=== PATIENT | male | born 1950 | race African-American/Black ===

== ENCOUNTER 2016-12-13 01:32 | Emergency (ER) | payer MEDICARE, MEDICAID ==
[~2016-12-13] VITALS: Ht 167.6 cm; Wt 63.0 kg
[~2016-12-13 01:32] MED LIST: ASPI81TA67 PO; CALTTAB10 PO; CLIN150 PO; CRES10TA PO; EPZITAB4 PO; LISI-360 PO; TENO300 PO; [UNRECOGNIZED DRUG - CODE] PO
[2016-12-13 01:34] VITALS: BP 159/77; PULSE 81; RESP 16; TEMP 97.7; O2SAT 100
[2016-12-13 02:59] VITALS: RESP 18; O2SAT 97
[2016-12-13] MEDS ORDERED: ASPI-110 PO (03:02)
[2016-12-13] MEDS ORDERED: VIRA200T PO (03:02)
[2016-12-13] MEDS ORDERED: VIRE300T2 PO (03:02)
[2016-12-13] MEDS ORDERED: ROSU10 PO (03:02)
[2016-12-13] MEDS ORDERED: EPZITAB3 PO (03:02)
[2016-12-13 04:09] LABS: AUTOMATED NEUTROPHIL # 2.9 TH/MM3 (1.8-7.7); BASOPHIL % 0.8 % (0.0-2.0); EOSINOPHIL # 0.2 TH/MM3 (0-0.4); EOSINOPHIL % 3.8 % (0.0-4.0); HEMATOCRIT 39.3 % (39.0-51.0); HEMO FLAGS DIFF FINAL; LYMPH % 22.7 % (9.0-44.0); LYMPHOCYTE # 1.2 TH/MM3 (1.0-4.8); MEAN CELL VOLUME 91.6 FL (80.0-100.0); MEAN CORPUSCULAR HEMOGLOBIN 31.3 PG (27.0-34.0); MEAN CORPUSCULAR HGB CONC 34.2 % (32.0-36.0); MONO % 17.4 % (0.0-8.0); NEUT % 55.3 % (16.0-70.0); PLATELET COUNT 205 TH/MM3 (150-450); RED BLOOD COUNT 4.29 MIL/MM3 (4.50-5.90); RED CELL DISTRIBUTION WIDTH 14.9 % (11.6-17.2); WHITE BLOOD COUNT 5.2 TH/MM3 (4.0-11.0)
[2016-12-13] MEDS ORDERED: NYST100084 TOPICAL (04:29)
[2016-12-13] MEDS ORDERED: DIFL150T PO (04:29)
[2016-12-13 04:36] LABS: BLOOD, URINE NEG (NEG); COMMENT (UR) CULT NOT INDICATED; CULTURE IF INDICATED CULT NOT INDICATED; GLUCOSE,URINE NEG (NEG); KETONE, URINE NEG (NEG); MUCUS URINE FEW /lpf (OCC); NITRITE,URINE NEG (NEG); SQUAMOUS EPITHELIAL CELL URINE <1 /hpf (0-5); URINE COLOR YELLOW (YELLW/STRAW)
[2016-12-13 04:43] LABS: ALT (GPT) 38 U/L (12-78); ANION GAP 5 MEQ/L (5-15); AST (GOT) 29 U/L (15-37); BICARBONATE 31.3 MEQ/L (21.0-32.0); BLOOD UREA NITROGEN 13 MG/DL (7-18); CHLORIDE 107 MEQ/L (98-107); GLOMERULAR FILTRATION RATE 71 ML/MIN (>89); POTASSIUM 3.8 MEQ/L (3.5-5.1); SODIUM (NA) 143 MEQ/L (136-145)
[2016-12-13 04:45] LABS: ALKALINE PHOSPHATASE 81 U/L (45-117); TOTAL BILIRUBIN ADULT 0.2 MG/DL (0.2-1.0)
--- NOTE | 2016-12-13 05:13 | PD ---
HPI Chief Complaint: Complaint Time Seen by Provider: 03:29 Travel History International Travel<30 days: No Contact w/Intl Traveler<30days: No Traveled to known affect area: No History of Present Illness HPI The patient is a 66 year old male who presents to the [facility] emergency department with a history of a burning sensation to his penis that he first noticed on Monday. He reports that he then noticed when attempting to urinate that it was more difficult to urinate and his penis was swollen. Since then, he has noticed some redness to the shaft of the penis and the glans. He reports that he does have a partner that he is sexually active with, however he denies any new partners. He reports that he is concerned about sexually transmitted infections. He denies any prior history of herpes. He reports that he has remote history as a teenager of having gonorrhea. He denies having any associated penile discharge. He denies having any scrotal pain or swelling. He denies having any abdominal pain. The patient denies any recent antibiotic use. The patient is uncircumcised. On review of systems, the patient denies any recent cough, congestion, neck pain, chest pain, shortness of breath, vomiting, diarrhea, urinary frequency, urinary urgency, or neurologic symptoms. [facility] Past Medical History Narrative Medical The patient's Patient's past medical history is significant for HIV diagnosed in 2004. The patient last had a CD4 count and viral load done 2 weeks ago. He reports that his CD4 count was good and his viral load was undetectable. The patient has a history of colon cancer, prostate cancer. Cancer: Yes (COLON AND PROSTATE) Diminished Hearing: No Immune Disorder: Yes (HIV POSITIVE) Tetanus Vaccination: Unknown Influenza Vaccination: No Past Surgical History Narrative Surgical The patient's past surgical history is significant for bilateral hip replacements. 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 Aspirin 81 (Aspirin) 81 Mg Tabdr 81 Mg PO DAILY Crestor (Rosuvastatin Calcium) 10 Mg Tab 10 Mg PO DAILY Viramune (Nevirapine) 200 Mg Tab 50 Mg PO BID Viread (Tenofovir Disoproxil Fumarate) 300 Mg Tab 300 Mg PO DAILY Review of Systems Except as stated in HPI: all other systems reviewed are Neg General / Constitutional: No: Fever Eyes: No: Visual changes HENT: No: Headaches Cardiovascular: No: Chest Pain or Discomfort Respiratory: No: Shortness of Breath Gastrointestinal: No: Abdominal Pain Genitourinary: Positive: Dysuria, No: Urgency, Frequency, Pelvic Pain, Discharge Musculoskeletal: No: Pain Skin: Positive Change in Pigmentation (redness to the penis), No Rash Neurologic: No: Weakness Psychiatric: No: Depression Endocrine: No: Polydipsia Hematologic/Lymphatic: No: Easy Bruising Physical Exam Narrative General: The patient is a well-developed well-nourished male in no acute distress. Head and Neck exam: Head is normocephalic atraumatic. Eyes: EOMI, pupils are equal round and reactive to light. Nose: Midline septum with pink mucous membranes Mouth: Dentition unremarkable. Moist mucus membranes. Posterior oropharynx is not erythematous. No tonsillar hypertrophy. Uvula midline. Airway patent. Neck: No palpable lymphadenopathy. No nuchal rigidity. No thyromegaly. Cardiovascular: Regular rate and rhythm without murmurs, gallops, or rubs. Lungs: Clear to auscultation bilaterally. No wheezes, rhonchi, or rales. Abdomen: Soft, without tenderness to palpation in all 4 quadrants of the abdomen. No guarding, rebound, or rigidity. Bowel sounds are audible. No tenderness on palpation of McBurney's point. Extremities: No clubbing, cyanosis, or edema. 2+ pulses in all 4 extremities. No calf tenderness on palpation. Back: No costovertebral angle tenderness to palpation. Neurologic Exam: Grossly nonfocal. Skin Exam: No rash noted. Intact skin that is warm and dry. Genital exam: The patient is an uncircumcised male. No abnormality noted on the outside of the foreskin, however with retraction of the foreskin the patient is noted to have erythema to the glans of the penis and one third down the shaft of the penis. There are no vesicles noted. No ulceration. No penile discharge. No scrotal swelling or pain on palpation. No palpable testicle masses or tenderness on palpation. No palpable hernia. Data Data Last Documented VS Vital Signs Date Time Temp Pulse Resp B/P Pulse Ox O2 Delivery O2 Flow Rate FiO2 12/13/16 01:34 97.7 81 16 159/77 100 Room Air Orders Urinalysis - C+S If Indicated (12/13/16 03:30) Gc And Chlamydia Pcr (12/13/16 03:30) Complete Blood Count With Diff (12/13/16 03:30) Comprehensive Metabolic Panel (12/13/16 03:30) Iv Access Insert/Monitor (12/13/16 03:30) Ecg Monitoring (12/13/16 03:30) Oximetry (12/13/16 03:30) Labs Laboratory Tests Test 12/13/16 03:55 White Blood Count 5.2 TH/MM3 Red Blood Count 4.29 MIL/MM3 Hemoglobin 13.4 GM/DL Hematocrit 39.3 % Mean Corpuscular Volume 91.6 FL Mean Corpuscular Hemoglobin 31.3 PG Mean Corpuscular Hemoglobin 34.2 % Concent Red Cell Distribution Width 14.9 % Platelet Count 205 TH/MM3 Mean Platelet Volume 9.3 FL Neutrophils (%) (Auto) 55.3 % Lymphocytes (%) (Auto) 22.7 % Monocytes (%) (Auto) 17.4 % Eosinophils (%) (Auto) 3.8 % Basophils (%) (Auto) 0.8 % Neutrophils # (Auto) 2.9 TH/MM3 Lymphocytes # (Auto) 1.2 TH/MM3 Monocytes # (Auto) 0.9 TH/MM3 Eosinophils # (Auto) 0.2 TH/MM3 Basophils # (Auto) 0.0 TH/MM3 CBC Comment DIFF FINAL Differential Comment Urine Color YELLOW Urine Turbidity CLEAR Urine pH 6.0 Urine Specific [place] 1.025 Urine Protein TRACE mg/dL Urine Glucose (UA) NEG mg/dL Urine Ketones NEG mg/dL Urine Occult Blood NEG Urine Nitrite NEG Urine Bilirubin NEG Urine Urobilinogen 2.0 MG/DL Urine Leukocyte Esterase NEG Urine RBC LESS THAN 1 /hpf Urine WBC LESS THAN 1 /hpf Urine Squamous Epithelial <1 /hpf Cells Urine Mucus FEW /lpf Microscopic Urinalysis Comment CULT NOT INDICATED Sodium Level 143 MEQ/L Potassium Level 3.8 MEQ/L Chloride Level 107 MEQ/L Carbon Dioxide Level 31.3 MEQ/L Anion Gap 5 MEQ/L Blood Urea Nitrogen 13 MG/DL Creatinine 1.23 MG/DL Estimat Glomerular Filtration 71 ML/MIN Rate Random Glucose 85 MG/DL Calcium Level 9.3 MG/DL Total Bilirubin 0.2 MG/DL Aspartate Amino Transf 29 U/L (AST/SGOT) Alanine Aminotransferase 38 U/L (ALT/SGPT) Alkaline Phosphatase 81 U/L Total Protein 7.2 GM/DL Albumin 3.6 GM/DL [facility] Medical Decision Making Medical Screen Exam Complete: Yes Emergency Medical Condition: Yes Medical Record Reviewed: Yes Differential Diagnosis Balanitis, versus phimosis, versus paraphimosis, versus gonorrhea, versus chlamydia, versus herpes Narrative Course During the course of the patients emergency department visit, the patients history, examination, and differential diagnosis were reviewed with the patient. The patient had IV access obtained and blood work sent for analysis. The urine was sent for analysis. The patients laboratory studies were reviewed and remarkable for a white count of 5.2, hemoglobin 13.4, platelets 205 with 17.4 monocytes, CMP is remarkable for a GFR 71, urinalysis is unremarkable. The patient's physical examination findings are most consistent with a balanitis. The patient will be discharged home with a prescription for Diflucan and nystatin ointment. The patient is resting comfortably and feels better, is alert and in no distress. The patients results and examination findings were discussed with the patient. The repeat examination is unremarkable and benign. The history, exam, diagnostic testing, and current condition do not suggest any significant pathology to warrant further testing, continued ED treatment, admission, or surgical evaluation at this point. The vital signs have been stable. The patient does not have uncontrollable pain, intractable vomiting, or other significant symptoms. The patient's condition is stable and appropriate for discharge. The patient will pursue further outpatient evaluation with a primary care physician or other designated or consulting physician as indicated in the discharge instructions. The patient expressed understanding and was agreeable with this plan. Diagnosis Primary Impression: Balanitis Referrals: Primary Care Physician 3 days Patient Instructions: Balaptis (ED), General Instructions Med/Other Pt SpecificInfo: Prescription(s) given Scripts Nystatin Topical 100,000 unit/gm Oint1 Applic TOPICAL Q12HR 10 Days Ref 0 Prov:Savita Teran MD 12/13/16 Fluconazole (Diflucan)150 Mg Gmo313 Mg PO ONCE #1 TAB Ref 0 Prov:Savita Teran MD 12/13/16 Disposition: 01 DISCHARGE HOME Condition: Stable Savita Teran MD December 13, 2016 05:13
[2016-12-13 09:40] LABS: CHLAMYDIA PCR NOT DETECTED (NOT DETECT); NEISSERIA PCR NOT DETECTED (NOT DETECT)
== END 2016-12-13 05:32 | disposition home or self-care (01) ==
LOC: NEPC 01:32
DX: N48.1 Balanitis (principal); B20 Human immunodeficiency virus [HIV] disease; Z96.643 Presence of artificial hip joint, bilateral; F17.210 Nicotine dependence, cigarettes, uncomplicated; F14.90 Cocaine use, unspecified, uncomplicated
CPT/HCPCS: 80053; 81001; 85025; 87491; 87591; 99283